=== PATIENT | male | born 1995 | race Caucasian/White ===

== ENCOUNTER 2020-01-13 10:13 | Inpatient (IN) | payer BC ==
[~2020-01-13] VITALS: Ht 185.4 cm; Wt 80.0 kg
[2020-01-13] MEDS ORDERED: ZOLPIDEM TARTRATE 10 MG TABLET PO PRN (13:15)
[2020-01-13] MEDS ORDERED: NICOTINE 14 MG/24 HOUR PATCH TD ONE (14:45)
[2020-01-13 16:02] VITALS: BP 106/61
[2020-01-13] MEDS ORDERED: IBUPROFEN 400 MG TABLET PO PRN (20:00)
[2020-01-13] MEDS ORDERED: LOPERAMIDE HCL 2 MG CAPSULE PO PRN (20:00)
[2020-01-13] MEDS ORDERED: ONDANSETRON HCL 4 MG TABLET PO PRN (20:00)
[2020-01-13] MEDS ORDERED: ALBUTEROL SULFATE HFA 90 MCG/PUFF 8 GM INHALER IH PRN (20:00)
[2020-01-13] MEDS ORDERED: GuaiFENesin/D-METHORPHAN [SUGAR-FREE] 200-20MG/10 ML SYRUP UDCUP PO PRN (20:00)
[2020-01-13] MEDS ORDERED: MAG HYDROX/AL HYDROX/SIMETH ES 30 ML SUSPENSION UDCUP PO PRN (20:00)
[2020-01-13] MEDS ORDERED: DOCUSATE SODIUM 100 MG CAPSULE PO PRN (20:00)
[2020-01-13] MEDS ORDERED: NICOTINE 14 MG/24 HOUR PATCH TD PRN (20:00)
[2020-01-13] MEDS ORDERED: ACETAMINOPHEN 325 MG TABLET PO PRN (20:00)
[2020-01-13] MEDS ORDERED: MAGNESIUM HYDROXIDE SUSPENSION 30 ML UDCUP PO PRN (20:00)
[2020-01-13] MEDS ORDERED: CloNIDine HCL 0.1 MG TABLET PO PRN (20:00)
[2020-01-14] MEDS: PETROLATUM,WHITE 28 GM JELLY TP PRN (06:35)
[2020-01-14 06:45] VITALS: BP 129/81
[2020-01-14] MEDS: LORazepam 2 MG TABLET PO PRN ×2 (08:31→16:43)
[2020-01-14] MEDS: OLANZapine 5 MG RAPDIS TABLET PO PRN (08:31)
[2020-01-14 08:36] LABS: BASOPHILS % (AUTO) 0.6 % (0.0-2.0); EOSINOPHILS % (AUTO) 0.7 % (1.0-6.0); HEMATOCRIT 43.6 % (41-53); LYMPHOCYTES # (AUTO) 0.9 K/uL (1.0-4.8); LYMPHOCYTES % (AUTO) 21.5 % (22.0-44.0); MEAN CORPUSCULAR HEMOGLOBIN 32.4 pg (26.0-34.0); MEAN CORPUSCULAR HGB CONC 34.4 G/dL (31.0-37.0); MEAN CORPUSCULAR VOLUME 94 fL (80-100); MONOCYTES # (AUTO) 0.3 K/uL (0.1-1.0); MONOCYTES % (AUTO) 6.4 % (2.0-9.0); NEUTROPHILS # (AUTO) 2.9 K/uL (1.8-7.7); NEUTROPHILS % (AUTO) 70.8 % (40.0-70.0); PLATELET COUNT (AUTO) 245 K/uL (150-450); RED BLOOD CELL COUNT(AUTO) 4.63 MIL/uL (4.50-5.90); RED CELL DISTRIBUTION WIDTH 12.3 % (11.5-14.5)
[2020-01-14 08:38] VITALS: BP 130/81
[2020-01-14 09:00] LABS: ALANINE AMINOTRANSFERASE 27 U/L (12-78); ALBUMIN 4.2 g/dL (3.4-5.0); ALKALINE PHOSPHATASE 67 U/L (46-116); ANION GAP 6 mmol/L (8-16); ASPARTATE AMINOTRANSFERASE 17 U/L (15-37); BILIRUBIN,TOTAL 0.5 mg/dL (0.1-1.0); CALCIUM, TOTAL 9.2 mg/dL (8.8-10.5); CARBON DIOXIDE 29 mmol/L (22-29); CHLORIDE 102 mmol/L (98-107); CHOL/HDL RATIO 2.4 (4.2-7.3); CHOLESTEROL 120 mg/dL (131-200); CREATININE 0.86 mg/dL (0.60-1.30); GLOMERULAR FILTR. RATE CALC > 60 mL/min (>60); GLUCOSE,RANDOM 117 mg/dL (70-110); HDL CHOLESTEROL 49 mg/dL (40-60); LDL CHOL (CALC.) 62 mg/dL (0-130); SODIUM SERUM 137 mmol/L (136-145); THYROID STIMULATING HORMONE 0.58 uIU/mL (0.36-3.74); TOTAL PROTEIN, SERUM 7.7 g/dL (6.4-8.2); TRIGLYCERIDES 43 mg/dL (15-150); UREA NITROGEN, BLOOD 13 mg/dL (7-18)
[2020-01-14] MEDS: OLANZapine 5 MG RAPDIS TABLET PO SCH ×2 (10:08→20:33)
[2020-01-14 16:02] VITALS: BP 126/73
[2020-01-14] MEDS: NICOTINE 14 MG/24 HOUR PATCH TD SCH (19:18)
[2020-01-14] MEDS ORDERED: OLAN5TAB40 PO (20:49)
[2020-01-15 02:48] VITALS: BP 104/65
[2020-01-15] MEDS: OLANZapine 5 MG RAPDIS TABLET PO SCH ×2 (08:31→20:12)
[2020-01-15] MEDS: NICOTINE 14 MG/24 HOUR PATCH TD SCH (08:31)
[2020-01-15] MEDS ORDERED: NICOTINE 14 MG/24 HOUR PATCH TD SCH (09:00)
[2020-01-15] MEDS: LORazepam 2 MG TABLET PO PRN (11:01)
[2020-01-15 12:42] VITALS: BP 134/70
[2020-01-15 16:02] VITALS: BP 112/74
[2020-01-16 02:15] VITALS: BP 121/69
[2020-01-16 08:14] VITALS: BP 127/63
[2020-01-16] MEDS: OLANZapine 5 MG RAPDIS TABLET PO SCH ×2 (08:18→20:32)
[2020-01-16] MEDS: NICOTINE POLACRILEX 2 MG LOZENGE PO PRN ×2 (10:27→16:46)
[2020-01-16 16:00] VITALS: BP 123/69
[2020-01-16] MEDS: LORazepam 2 MG TABLET PO PRN (18:13)
[2020-01-16] MEDS: OLANZapine 5 MG RAPDIS TABLET PO PRN (18:13)
[2020-01-17 03:49] VITALS: BP 126/76
[2020-01-17] MEDS: NICOTINE POLACRILEX 2 MG LOZENGE PO PRN ×3 (05:20→18:23)
[2020-01-17] MEDS ORDERED: PETROLATUM,WHITE 28 GM JELLY TP PRN (08:00)
[2020-01-17 08:36] VITALS: BP 128/80
[2020-01-17] MEDS: OLANZapine 5 MG RAPDIS TABLET PO SCH ×2 (08:52→20:47)
[2020-01-17 17:34] VITALS: BP 147/94
[2020-01-18] MEDS: NICOTINE POLACRILEX 2 MG LOZENGE PO PRN ×3 (00:24→19:20)
[2020-01-18 05:13] VITALS: BP 150/90
[2020-01-18 08:08] VITALS: BP 134/66
[2020-01-18] MEDS: OLANZapine 5 MG RAPDIS TABLET PO SCH ×2 (08:46→21:13)
[2020-01-18 16:11] VITALS: BP 137/77
[2020-01-19 00:09] VITALS: BP 127/80
[2020-01-19] MEDS: NICOTINE POLACRILEX 2 MG LOZENGE PO PRN ×2 (05:15→23:35)
[2020-01-19 08:28] VITALS: BP 124/74
[2020-01-19] MEDS: OLANZapine 5 MG RAPDIS TABLET PO SCH (08:30)
[2020-01-19] MEDS: OLANZapine 7.5 MG TABLET PO SCH ×2 (08:47→20:16)
[2020-01-19] MEDS: PETROLATUM,WHITE 28 GM JELLY TP PRN (08:49)
[2020-01-19 16:05] VITALS: BP 135/81
[2020-01-19] MEDS: LORazepam 2 MG TABLET PO PRN (17:09)
[2020-01-19] MEDS: OLANZapine 5 MG RAPDIS TABLET PO PRN (21:15)
[2020-01-20 02:58] VITALS: BP 110/75
[2020-01-20 08:09] VITALS: BP 134/64
[2020-01-20] MEDS: OLANZapine 7.5 MG TABLET PO SCH ×2 (08:50→20:10)
[2020-01-20] MEDS: NICOTINE POLACRILEX 2 MG LOZENGE PO PRN ×2 (13:22→20:22)
[2020-01-20] MEDS: PETROLATUM,WHITE 28 GM JELLY TP PRN (13:23)
[2020-01-20 16:00] VITALS: BP 134/87
[2020-01-21 00:24] VITALS: BP 128/75
[2020-01-21 08:00] VITALS: BP 140/73
[2020-01-21] MEDS: OLANZapine 7.5 MG TABLET PO SCH ×2 (09:09→20:06)
[2020-01-21] MEDS: NICOTINE POLACRILEX 2 MG LOZENGE PO PRN ×2 (10:37→17:05)
[2020-01-21 16:15] VITALS: BP 125/67
[2020-01-22 01:49] VITALS: BP 124/69
[2020-01-22] MEDS: OLANZapine 7.5 MG TABLET PO SCH (08:24)
[2020-01-22 08:45] VITALS: BP 136/76
[2020-01-22] MEDS: NICOTINE POLACRILEX 2 MG LOZENGE PO PRN (09:06)
[2020-01-22 16:06] VITALS: BP_SYST 128; BP_DIAS 68; BP_DIAS 79
[2020-01-22] MEDS ORDERED: OLAN7.5T2 PO (16:53)
== END 2020-01-22 17:30 | disposition home or self-care (01) | DRG 885 ==
LOC: B3A 13:21 → UNDODISIN 01-22 14:21 → B3A 01-22 14:21
DX: F25.1 Schizoaffective disorder, depressive type (principal); R45.851 Suicidal ideations; Z81.8 Family history of other mental and behavioral disorders; F17.210 Nicotine dependence, cigarettes, uncomplicated; Z91.013 Allergy to seafood; F12.10 Cannabis abuse, uncomplicated; D72.819 Decreased white blood cell count, unspecified; R73.9 Hyperglycemia, unspecified; F19.10 Other psychoactive substance abuse, uncomplicated; F41.9 Anxiety disorder, unspecified
CPT/HCPCS: 83036; 84443; 86592